=== PATIENT | female | born 1995 | race Hispanic/Latino ===

== ENCOUNTER 2018-01-22 04:02 | Observation (INO) | payer BC ==
[~2018-01-22] VITALS: Ht 147.3 cm; Wt 87.1 kg
[2018-01-22] MEDS ORDERED: MORPHINE SULFATE 2 MG/ML SYR IV STA (04:18)
[2018-01-22] MEDS ORDERED: ONDANSETRON HCL INJ 2 MG/ML VIAL IV STA (04:18)
[2018-01-22] MEDS ORDERED: SODIUM CHLORIDE 0.9% 1000ML 1,000 ML IV STA (04:18)
[2018-01-22] MEDS ORDERED: PANTOPRAZOLE 40 MG 10ML VIAL IV STA (04:18)
[2018-01-22 04:36] LABS: BASOPHILS % 0.3 % (0.0-1.0); EOSINOPHILS % 0.2 % (0.0-6.0); HEMATOCRIT 45.8 % (34.2-44.1); HEMOGLOBIN 15.7 g/dL (12.0-16.0); LYMPHOCYTES # (AUTO) 2.2 (1.0-3.2); LYMPHOCYTES % 15.9 % (18.0-39.1); MEAN CORPUSCULAR HEMOGLOBIN 30.7 pg (28-32); MEAN CORPUSCULAR HGB CONC 34.3 g/dL (31-35); MEAN CORPUSCULAR VOLUME 89.5 fL (81-99); MONOCYTES # (AUTO) 0.6 (0.2-0.8); MONOCYTES % 4.3 % (4.4-11.3); NEUTROPHILS # (AUTO) 10.7 (2.1-6.9); NEUTROPHILS % 78.9 % (38.7-80.0); PLATELET COUNT 360 x10e3/uL (140-360); RED BLOOD COUNT 5.12 x10e6/uL (3.6-5.1); RED CELL DISTRIBUTION WIDTH 13.1 % (11.7-14.4)
[2018-01-22 04:41] LABS: CLARITY,URINE HAZY (CLEAR); COLOR,URINE YELLOW (YELLOW)
[2018-01-22 04:42] LABS: BILIRUBIN,URINE NEGATIVE (NEGATIVE); KETONES,URINE 2+ (NEGATIVE); LEUKOCYTE ESTERASE ,URINE NEGATIVE (NEGATIVE); NITRITE,URINE NEGATIVE (NEGATIVE); PROTEIN,URINE DIPSTICK TRACE (NEGATIVE); URINE UROBILINOGEN 0.2 mg/dL (0.2 - 1)
[2018-01-22 04:43] LABS: PREGNANCY TEST, URINE NEGATIVE (NEGATIVE)
[2018-01-22 04:48] LABS: INR 1.08; PROTHROMBIN TIME 13.2 seconds (11.9-14.5)
[2018-01-22 04:49] LABS: PARTIAL THROMBOPLASTIN TIME 30.3 seconds (23.8-35.5)
[2018-01-22 04:52] LABS: BACTERIA,URINE RARE /HPF; EPITHELIAL CELLS,URINE RARE /LPF; RBC,URINE >50 /HPF (0-5); WBC,URINE (MAN) 0-5 /HPF (0-5)
[2018-01-22 04:54] LABS: ALANINE AMINOTRANSFERASE 118 IU/L (0-55); ALBUMIN 4.2 g/dL (3.5-5.0); ALKALINE PHOSPHATASE 91 IU/L (40-150); AMYLASE 72 U/L (25-125); ANION GAP 15.9 mmol/L (8-16); BLOOD UREA NITROGEN 17 mg/dL (7-26); BUN/CREATININE RATIO 21 (6-25); CALCIUM 10.1 mg/dL (8.4-10.2); CARBON DIOXIDE 21 mmol/L (22-29); CHLORIDE 108 mmol/L (98-107); CREATININE, SERUM 0.82 mg/dL (0.57-1.11); EST GLOMERULAR FILTRATION RATE > 60 ML/MIN (60-); GLUCOSE 125 mg/dL (74-118); LIPASE 13 U/L (8-78); MAGNESIUM 2.3 MG/DL (1.3-2.1); POTASSIUM 3.9 mmol/L (3.5-5.1); SODIUM 141 mmol/L (136-145)
[2018-01-22] MEDS ORDERED: PIPER-TAZ 3.375 GM 50 ML ONE (06:40)
[2018-01-22] MEDS ORDERED: CRYSELLE1 EACH PO (06:40)
[2018-01-22] MEDS: PIPER-TAZ 3.375 GM 50 ML IV SCH ×3 (06:42→17:23)
[2018-01-22] MEDS ORDERED: MORPHINE SULFATE 2 MG/ML SYR IV PRN (06:45)
--- NOTE | 2018-01-22 07:04 | Diagnostic Imaging Report ---
PROCEDURE:CHEST SINGLE (PORTABLE) TECHNIQUE:Portable AP chest INDICATION:Right upper quadrant pain COMPARISON:None. FINDINGS: The lungs are clear and symmetrically inflated. No pleural effusions. Normal heart size, mediastinal contour, and pulmonary vasculature. Intact skeleton. CONCLUSION: Normal portable chest. Dictated by: Robby Bowers M.D. on 01/22/2018 at 7:07 Electronically approved by: Robby Bowers M.D. on 01/22/2018 at 7:07
--- NOTE | 2018-01-22 07:09 | Diagnostic Imaging Report ---
PROCEDURE:US GALLBLADDER COMPARISON:None. INDICATIONS:Stomach ache; backache TECHNIQUE: Krishnamurthy scale color Doppler ultrasound gallbladder FINDINGS: Imaged portions of the pancreas, abdominal aorta and inferior vena cava are unremarkable. Right liver span 15.3 cm. Normal echogenicity. Portal vein diameter 1 cm; normal flow direction. Multiple subcentimeter calcified gallstones. Wall thickness 0.3 cm. No sonographic Zamora sign. No pericholecystic fluid. Right kidney span of 9.4 cm. CONCLUSION: Cholelithiasis without sonographic evidence of cholecystitis. Dictated by: Robby Bowers M.D. on 01/22/2018 at 7:12 Electronically approved by: Robby Bwoers M.D. on 01/22/2018 at 7:12
[2018-01-22 08:30] VITALS: BP 121/65
[2018-01-22 08:57] VITALS: BP 121/65
[2018-01-22] MEDS: PANTOPRAZOLE 40 MG 10ML VIAL IV SCH (09:00)
[2018-01-22] MEDS: SODIUM CHLORIDE 0.9% 1000ML 1,000 ML IV SCH ×3 (09:35→22:42)
[2018-01-22 12:14] VITALS: BP 111/57
[2018-01-22 20:00] VITALS: BP 115/57
--- NOTE | 2018-01-22 20:28 | Diagnostic Imaging Report ---
EXAMINATION: MRI abdomen without contrast/MRCP. TECHNIQUE: Axial T1 in and out of phase, axial T2 fat sat, coronal T2 with and without fat-sat, axial DWI and ADC MR images of the abdomen were performed. No intravenous gadolinium was given. Heavily T2-weighted MRCP images were also obtained, including thick and thin slab MRCP ASSETT and 3-D reconstructions. CLINICAL HISTORY: Abdominal pain radiating to the back, cholelithiasis, elevated bilirubin and transaminases COMPARISON: Right upper quadrant ultrasound 01/22/2018 FINDINGS: LACK OF GADOLINIUM DECREASES SENSITIVITY FOR DETECTION OF INTRA-ABDOMINAL PATHOLOGY. LOWER THORAX: Unremarkable. LIVER: Normal hepatic size and contour. No hepatic signal abnormality. No focal T2 hyperintense hepatic lesions. BILIARY: No intra or extrahepatic biliary ductal dilation. The common bile duct measures approximately 4 mm at the guera hepatis and 3 mm at the pancreatic head. No intraluminal filling defects, strictures or extrinsic compressions. Normal tapering to the ampulla. Multiple T2 hypointense filling defect consistent with small stones are noted in the dependent portion of the gallbladder lumen. No wall thickening or pericholecystic fluid. PANCREAS: No mass or ductal dilatation. SPLEEN: No splenomegaly. ADRENALS: No nodules. KIDNEYS: No hydronephrosis or solid mass in the imaged portion of the kidneys. 1.1 cm T2 hyperintense left renal cyst in the interval region (series 10, image 28). PERITONEUM / RETROPERITONEUM: No upper abdominal free fluid. LYMPH NODES: No upper abdominal lymphadenopathy. VESSELS: Normal flow voids are identified.. BONES AND SOFT TISSUES: No abnormal bone marrow signal. No soft tissue abnormalities.. IMPRESSION: 1. No intra or extrahepatic biliary ductal dilation. No MR evidence of choledocholithiasis. No strictures or extrinsic compressions. 2. Cholelithiasis, without MR evidence of cholecystitis. Signed by: Dr. Dominick Ozuna M.D. on 01/22/2018 8:25 PM
[2018-01-22] MEDS: ONDANSETRON HCL INJ 2 MG/ML VIAL IV PRN (23:57)
[2018-01-23] VITALS (7 sets, daily range): BP systolic 101–119; BP diastolic 51–64
[2018-01-23] MEDS: PIPER-TAZ 3.375 GM 50 ML IV SCH ×5 (00:20→23:28)
[2018-01-23 06:31] LABS: BASOPHILS % 0.3 % (0.0-1.0); EOSINOPHILS # (AUTO) 0.1 (0.0-0.4); HEMATOCRIT 38.2 % (34.2-44.1); HEMOGLOBIN 12.6 g/dL (12.0-16.0); LYMPHOCYTES # (AUTO) 3.3 (1.0-3.2); LYMPHOCYTES % 32.9 % (18.0-39.1); MEAN CORPUSCULAR HEMOGLOBIN 30.2 pg (28-32); MEAN CORPUSCULAR VOLUME 91.6 fL (81-99); MONOCYTES # (AUTO) 0.6 (0.2-0.8); MONOCYTES % 6.1 % (4.4-11.3); NEUTROPHILS # (AUTO) 5.9 (2.1-6.9); NEUTROPHILS % 59.3 % (38.7-80.0); PLATELET COUNT 281 x10e3/uL (140-360); RED BLOOD COUNT 4.17 x10e6/uL (3.6-5.1); RED CELL DISTRIBUTION WIDTH 13.4 % (11.7-14.4)
[2018-01-23 07:02] LABS: ALANINE AMINOTRANSFERASE 324 IU/L (0-55); ALBUMIN 3.2 g/dL (3.5-5.0); ALKALINE PHOSPHATASE 83 IU/L (40-150); AMYLASE 47 U/L (25-125); ANION GAP 11.1 mmol/L (8-16); BLOOD UREA NITROGEN 10 mg/dL (7-26); BUN/CREATININE RATIO 13 (6-25); CALCIUM 8.6 mg/dL (8.4-10.2); CARBON DIOXIDE 24 mmol/L (22-29); CHLORIDE 109 mmol/L (98-107); CREATININE, SERUM 0.78 mg/dL (0.57-1.11); EST GLOMERULAR FILTRATION RATE > 60 ML/MIN (60-); GLUCOSE 84 mg/dL (74-118); LIPASE 11 U/L (8-78); POTASSIUM 4.1 mmol/L (3.5-5.1); SODIUM 140 mmol/L (136-145)
[2018-01-23] MEDS: PANTOPRAZOLE 40 MG 10ML VIAL IV SCH (08:41)
[2018-01-23] MEDS: SODIUM CHLORIDE 0.9% 1000ML 1,000 ML IV SCH ×3 (08:41→20:31)
[2018-01-23] MEDS ORDERED: MIDAZOLAM HCL 2 MG/2 ML VIAL ONE (13:12)
[2018-01-23] MEDS ORDERED: FENTANYL CITRATE/PF 100MCG/2 ML INJ ONE (13:12)
--- NOTE | 2018-01-23 14:20 | Consultation ---
DATE OF CONSULTATION: January 22, 2018 CHIEF COMPLAINT: Abdominal pain. HISTORY OF PRESENTING ILLNESS: This patient is a 22-year-old female with history of epigastric abdominal pain for a few days with nausea, but no vomiting. The pain has been recurrently for the last month. Patient was found to have gallstone. PAST MEDICAL HISTORY: Positive for prediabetes. SURGICAL HISTORY: Unremarkable. ALLERGIES: SHE IS ALLERGIC TO SULFA. SOCIAL HABITS: The patient does not smoke or drink alcohol. REVIEW OF SYSTEMS: Negative except for current complaint. EXAMINATION VITALS: Stable. She is afebrile. GENERAL: Patient is awake, alert, in no apparent distress. HEENT: Sclera nonicteric. NECK: Supple. LUNGS: Clear. HEART: Regular rate and rhythm. ABDOMEN: Soft with mild guarding in epigastrium with no rebound. EXTREMITIES: Without cyanosis or edema. White cell count 13.5 with hemoglobin of 16. Liver function tests show bilirubin of 1.7 with elevated transaminase and alkaline phosphatase of 91, lipase 13. Ultrasound of the gallbladder has shown gallstones. MRCP showed gallstone with no biliary duct dilatations. ASSESSMENT: Cholelithiasis and probable cholecystitis. PLAN: Laparoscopic cholecystectomy. Attendant risks have been discussed with patient. Job#: [id number]
[2018-01-23] MEDS ORDERED: BUPIVACAINE 0.25%/EPI 30ML SDV INJ ONE (15:52)
[2018-01-23] MEDS ORDERED: MEPERIDINE HCL INJ 50 MG/ML INJ ONE (19:44)
--- NOTE | 2018-01-23 20:35 | Operative Report ---
DATE OF PROCEDURE: January 23, 2018 PREOPERATIVE DIAGNOSIS: Cholecystitis. POSTOPERATIVE DIAGNOSIS: Cholecystitis. OPERATIVE PROCEDURE: Laparoscopic cholecystectomy. STATE PATROL OFFICER: None. ANESTHESIA: General endotracheal. INDICATIONS FOR SURGERY: A 22-year-old female with a several-day history of pain in epigastrium and gallstone seen on ultrasound of the gallbladder. Mildly elevated liver function tests and an MRCP was negative for bile duct stone. Patient then consented for laparoscopic cholecystectomy. All attendant risks discussed. PROCEDURE FINDINGS: Acute cholecystitis with cholelithiasis. DESCRIPTION: The patient brought to the OR intubated. The abdomen prepped with alcohol and draped in a sterile fashion. Infraumbilical incision was made and a 10 mm port inserted. Insufflation begun. Under direct vision, other port site placed in midepigastric and right upper quadrant. Gallbladder was grasped at the fundus, retracted in cephalad direction. Neck of the gallbladder retracted laterally. With blunt dissection, the cystic artery and cystic duct isolated and junction of the common bile duct was noted before triple clipping the cystic artery and cystic duct and dividing them between clips. Gallbladder detached from the liver with cautery and taken out through umbilical port site with an Endo pouch. Operative field irrigated, hemostasis achieved with cauterization. All ports removed under direct vision. Fascial closure with 0 Vicryl. Skin closed with subcuticular stitch. Patient then extubated and transported to recovery room in guarded condition. ESTIMATED BLOOD LOSS: 10 mL. Job#: [id number]
[2018-01-23] MEDS ORDERED: MORPHINE SULFATE 2 MG/ML SYR IV PRN (21:45)
[2018-01-24] VITALS (9 sets, daily range): BP systolic 102–114; BP diastolic 53–61
[2018-01-24] MEDS: ACETAMINOPHEN/CODEINE 300MG - 30MG TAB PO PRN ×3 (02:20→22:15)
[2018-01-24] MEDS: ONDANSETRON HCL INJ 2 MG/ML VIAL IV PRN ×3 (02:20→22:14)
[2018-01-24] MEDS: PIPER-TAZ 3.375 GM 50 ML IV SCH ×3 (06:13→17:05)
[2018-01-24] MEDS: PANTOPRAZOLE 40 MG 10ML VIAL IV SCH (08:09)
[2018-01-24] MEDS: SODIUM CHLORIDE 0.9% 1000ML 1,000 ML IV SCH ×2 (09:03→14:33)
[2018-01-24] MEDS ORDERED: ACETAMINOPHEN 1000 MG/100 ML IV ONE (18:09)
[2018-01-24] MEDS ORDERED: GLYCOPYRROLATE INJ 1MG/ 5 ML SYR ONE (18:09)
[2018-01-24] MEDS ORDERED: ONDANSETRON HCL INJ 2 MG/ML VIAL ONE (18:09)
[2018-01-24] MEDS ORDERED: LIDOCAINE HCL 2% JELLY 5 ML TUBE ONE (18:09)
[2018-01-24] MEDS ORDERED: PROPOFOL IV EMULSION 10 MG/ML 20 ML VIAL ONE (18:09)
[2018-01-24] MEDS ORDERED: ROCURONIUM BROMIDE 10 MG/ML 5ML VIAL ONE (18:09)
[2018-01-24] MEDS ORDERED: SEVOFLURANE INHAL SOLN 250 ML PEN BTL ONE (18:09)
[2018-01-24] MEDS ORDERED: LIDOCAINE HCL 2% LOCAL INJ 5 ML SDV VIAL INJ ONE (18:09)
[2018-01-24] MEDS ORDERED: LABETALOL HCL 5 MG/ML 20ML VIAL ONE (18:09)
[2018-01-24] MEDS ORDERED: NEOSTIGMINE 5 MG/5ML SYR ONE (18:09)
[2018-01-24] MEDS ORDERED: KETOROLAC TROMETHAMINE 30 MG/ML VIAL ONE (18:09)
[2018-01-24] MEDS ORDERED: DEXAMETHASONE SOD PHOS INJ 4 MG/ML VIAL ONE (18:09)
[2018-01-25] VITALS: BP 98/54
[2018-01-25] MEDS: SODIUM CHLORIDE 0.9% 1000ML 1,000 ML IV SCH ×2 (00:30→06:42)
[2018-01-25] MEDS: PIPER-TAZ 3.375 GM 50 ML IV SCH ×2 (00:30→06:34)
[2018-01-25 04:00] VITALS: BP 101/51
[2018-01-25 07:29] VITALS: BP 93/55
[2018-01-25] MEDS: PANTOPRAZOLE 40 MG 10ML VIAL IV SCH (08:16)
[2018-01-25] MEDS: ACETAMINOPHEN/CODEINE 300MG - 30MG TAB PO PRN (08:52)
[2018-01-25 08:53] VITALS: BP 93/55
[2018-01-25] MEDS ORDERED: ULTRAM50 MG PO (09:07)
== END 2018-01-25 09:52 | disposition home or self-care (01) ==
LOC: ER 04:02 → INTOOBSV 06:50 → ERHOLD 06:50 → MED/SURG 07:30
PROVIDERS: ADMIT Internal Medicine; ATTEND Internal Medicine
DX: K80.13 Calculus of gallbladder with acute and chronic cholecystitis with obstruction (principal); Z88.2 Allergy status to sulfonamides; F41.9 Anxiety disorder, unspecified; R73.03 Prediabetes
CPT/HCPCS: 36415 ×2; 47562; 71045; 74181; 76705; 80053 ×2; 81001; 81025; 82150 ×2; 82948; 83690 ×2; 83735; 85025 ×2; 85610; 85730; 87086; 88304; 93005; 99284; G0378 ×4; J1100; J1885; J2001 ×2; J2175; J2250; J2270; J2405 ×2; J2543 ×4; J3490 ×2; J7030 ×4